=== PATIENT | female | born 1990 | race Caucasian/White ===

== ENCOUNTER 2019-10-08 19:28 | Emergency (ER) | payer MEDICARE, BC ==
[2019-10-08 19:35] VITALS: BP 137/85; PULSE 117; RESP 20; TEMP 98.7
--- NOTE | 2019-10-08 20:09 | ED ---
General Adult HPI - General Chief complaint: Abdominal Pain Stated complaint: Poss Bowel Blockage? Time Seen by Provider: 10/08/19 19:37 Source: patient, family, RN notes reviewed Mode of arrival: wheelchair Limitations: no limitations - History of Present Illness Initial comments: 28-year-old female with a past medical history of cerebral palsy presents to the emergency department for a chief complaint of abdominal bloating. Patient has not had a bowel movement in about 4 days. She has a history of constipation and takes Colace twice daily. She is not having any nausea or vomiting. She denies any abdominal pain. Her caregivers noted that her abdomen is more bloated than normal and that she has not had a bowel movement so brought her in. Patient has no other complaints at this time including shortness of breath, chest pain, abdominal pain, nausea or vomiting, headache, or visual changes. - Related Data Home Medications Medication Instructions Recorded Confirmed Acetaminophen [Tylenol] 325 mg PO DAILY 10/08/19 10/08/19 Baclofen [Lioresal] 100 mg PO BID 10/08/19 10/08/19 Docusate [Colace] 200 mg PO BID PRN 10/08/19 10/08/19 clonazePAM [KlonoPIN] 2 mg PO TID 10/08/19 10/08/19 diphenhydrAMINE [Benadryl] 25 mg PO BID 10/08/19 10/08/19 Allergies Allergy/AdvReac Type Severity Reaction Status Date / Time latex AdvReac Mild Sensitivity Verified 10/08/19 20:44 Review of Systems ROS Statement: Those systems with pertinent positive or pertinent negative responses have been documented in the HPI. ROS Other: All systems not noted in ROS Statement are negative. Past Medical History Additional Past Medical History / Comment(s): cerebal palsy History of Any Multi-Drug Resistant Organisms: None Reported Past Surgical History: No Surgical Hx Reported Past Psychological History: No Psychological Hx Reported Smoking Status: Never smoker Past Alcohol Use History: None Reported Past Drug Use History: None Reported General Exam Limitations: no limitations General appearance: alert, in no apparent distress Head exam: Present: atraumatic, normocephalic, normal inspection Eye exam: Present: normal appearance, PERRL, EOMI. Absent: scleral icterus, conjunctival injection, periorbital swelling ENT exam: Present: normal exam, mucous membranes moist Neck exam: Present: normal inspection, full ROM. Absent: tenderness, meningismus, lymphadenopathy Respiratory exam: Present: normal lung sounds bilaterally. Absent: respiratory distress, wheezes, rales, rhonchi, stridor Cardiovascular Exam: Present: regular rate, normal rhythm, normal heart sounds. Absent: systolic murmur, diastolic murmur, rubs, gallop, clicks GI/Abdominal exam: Present: soft, distended (Mildly distended abdomen), normal bowel sounds. Absent: tenderness (Soft, nontender), guarding, rebound, rigid Neurological exam: Present: alert Course Vital Signs 10/08/19 19:30 Temperature 98.7 F Pulse Rate 117 H Respiratory 20 Rate Blood Pressure 137/85 O2 Sat by Pulse 97 Oximetry Medical Decision Making - Medical Decision Making X-ray KUB did show some rectal fecal impaction. No free air. Patient is not having abdominal pain, no vomiting, and is passing gas, not concern for obstruction at this time. I did recommend digital disimpaction as well as enema. However caregivers do not want to do this and neither does patient. They state they do not want to transfer patient back to the bed and that enemas do not work for her because she cannot hold in the fluid. Patient refuses digital rectal disimpaction. They're requesting medications for home. Therefore I did give them a glycerin suppository. As well as magnesium citrate. I'll also write of prescription for suppositories. They will follow up with her doctor. They will return here patient notes any worsening symptoms including vomiting. Disposition Clinical Impression: Constipation Disposition: HOME SELF-CARE Condition: Good Instructions (If sedation given, give patient instructions): Constipation (ED) Additional Instructions: Please use glycerin suppository. Tried to retain in the rectum for 15 minutes. You may use these twice per day for 3 days. Drink half a bottle of magnesium citrate with a full glass of water. If this does not cause a bowel movement in 6 hours drink the other half. Follow-up with your doctor in one to 2 days for a recheck. Patient has any worsening symptoms such as vomiting or severe abdominal pain return to the emergency room. Is patient prescribed a controlled substance at d/c from ED?: No Referrals: Matt Gallo MD [Primary Care Provider] - 1-2 days Time of Disposition: 20:59
--- NOTE | 2019-10-08 20:27 | XR ---
EXAMINATION TYPE: XR KUB DATE OF EXAM: 10/08/2019 COMPARISON: NONE HISTORY: Abdominal pain and constipation TECHNIQUE: 2 views FINDINGS: There is retained fecal material in the rectum. There is lumbar levoscoliotic deformity. 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 Pelvic ring appears intact. T here is no sign of pneumoperitoneum. There is no evidence of abdominal mass. There are no pathologic calcifications. IMPRESSION: There is some Rectal fecal impaction. No free air. scoliotic deformity.
[2019-10-08] MEDS ORDERED: GLYCERIN ADULT SUPPOSITORY 1 EACH RECTAL STA (20:56)
[2019-10-08] MEDS ORDERED: MAGNESIUM CITRATE 296 ML BOTTLE PO STA (20:56)
== END 2019-10-08 21:34 | disposition home or self-care (01) ==
LOC: EC 19:28
DX: K59.00 Constipation, unspecified (principal); Z91.040 Latex allergy status
CPT/HCPCS: 74018; 99284

== ENCOUNTER 2019-12-25 16:15 | Inpatient (IN) | payer MEDICARE, BC ==
--- NOTE | 2019-12-25 16:53 | ED ---
Wound/Laceration HPI - General Source: patient Mode of arrival: wheelchair Limitations: physical limitation <Simon Dominguez - Last Filed: 12/25/19 19:50> <Wendi Blood - Last Filed: 12/27/19 20:43> - General Chief Complaint: Wound/Laceration Stated Complaint: pressure ulcer on buttocks Time Seen by Provider: 12/25/19 16:30 - History of Present Illness Initial Comments: Patient is a 29-year-old female, wheelchair dependent with history of cerebral palsy presenting to the emergency department with a pressure ulcer. Parents state the patient has had a pressure ulcer in the left side of her buttock for about 6 weeks with continuous increase in severity. There is a home nurse that changes the dressing. The home nurse today to change the dressing and attempted to contact her primary care physician due to the concerning nature of the ulcer. She could not reach so she advised him to come to emergency department for evaluation. Parents report no fevers nausea vomiting. The reports some discharge from the wound but no changes in smell. (Simon Dominguez) - Related Data Home Medications Medication Instructions Recorded Confirmed Baclofen [Lioresal] 100 mg PO BID 10/08/19 12/25/19 clonazePAM [KlonoPIN] 2 mg PO TID 10/08/19 12/25/19 diphenhydrAMINE [Benadryl] 25 mg PO TID 10/08/19 12/25/19 Collagenase [Santyl] 1 applic TOPICAL DAILY 12/25/19 12/25/19 L.acidoph,Paracasei, B.lactis 1 cap PO DAILY 12/25/19 12/25/19 [Probiotic] Naproxen Sodium [Aleve] 220 mg PO BID 12/25/19 12/25/19 Allergies Allergy/AdvReac Type Severity Reaction Status Date / Time latex AdvReac Mild Sensitivity Verified 12/25/19 19:51 Review of Systems ROS Other: All systems not noted in ROS Statement are negative. <Simon Dominguez - Last Filed: 12/25/19 19:50> ROS Other: All systems not noted in ROS Statement are negative. <Wendi Blood - Last Filed: 12/27/19 20:43> ROS Statement: Those systems with pertinent positive or pertinent negative responses have been documented in the HPI. Past Medical History Additional Past Medical History / Comment(s): cerebal palsy History of Any Multi-Drug Resistant Organisms: None Reported Past Surgical History: No Surgical Hx Reported Past Psychological History: No Psychological Hx Reported Smoking Status: Second hand smoke exposure Past Alcohol Use History: None Reported Past Drug Use History: None Reported <Simon Dominguez - Last Filed: 12/25/19 19:50> General Exam Limitations: physical limitation General appearance: alert, in no apparent distress Head exam: Present: atraumatic, normocephalic, normal inspection Eye exam: Present: PERRL, EOMI. Absent: normal appearance (Strabismus) Pupils: Present: normal accommodation ENT exam: Present: normal exam, normal oropharynx, mucous membranes moist Neck exam: Present: normal inspection, full ROM. Absent: tenderness Respiratory exam: Present: normal lung sounds bilaterally. Absent: respiratory distress, wheezes Cardiovascular Exam: Present: normal rhythm, tachycardia, normal heart sounds Back exam: Present: normal inspection, full ROM Neurological exam: Present: alert, oriented X3, normal gait Psychiatric exam: Present: normal affect, normal mood Skin exam: Present: warm, dry, intact, normal color <Simon Dominguez - Last Filed: 12/25/19 19:50> Course Vital Signs 12/25/19 12/25/19 12/25/19 16:22 18:24 21:00 Temperature 98.6 F 97.8 F Pulse Rate 131 H 112 H 120 H Respiratory 20 16 16 Rate Blood Pressure 126/83 111/67 139/83 O2 Sat by Pulse 99 97 Oximetry Medical Decision Making - Lab Data Result diagrams: 12/25/19 17:28 12/25/19 17:28 <Simon Dominguez - Last Filed: 12/25/19 19:50> - Lab Data Result diagrams: 12/25/19 17:28 12/27/19 04:41 <Wendi Blood - Last Filed: 12/27/19 20:43> - Medical Decision Making Patient a 29-year-old female with history of cerebral palsy presenting to the emergency department with a chief complaint upper her ulcer. On initial evaluation, patient has an ulcer that appears to approximately 2 cm of erosion. There is some yellow/white pustular discharge but no foul smell. No surrounding erythema along the borders of the ulcer. The ulcer measures approximately 4 cm in diameter. Patient appears to have dry mucous members on physical exam. I suspect this is the cause of her elevated lactic acid 2.3. IV fluids were started. Patient was also given Rocephin concern for sepsis. CBC is unremarkable. 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 Patient will be started on vancomycin and Zosyn. Patient will be admitted for further medical management. Dr Blood also examined the patient and is in agreement with the treatment plan. The admitted physician is Dr.Prakash LEE consulted (Simon Dominguez) I was available for consultation in the emergency department. The history and physical exam were done by the midlevel provider. I was consulted for this patients care. I reviewed the case with the midlevel provider and based on their presentation of the patient, I agree with the assessment, medical decision making and plan of care as documented. Chart was dictated using [employer] dictation software. Attempts were made to correct any dictation errors however some typographical errors may persist. Patient was seen during a national state of emergency due to the Covid-19 pandemic. (Wendi Blood) - Lab Data Lab Results 12/25/19 12/25/19 12/25/19 Range/Units 17:28 17:28 17:28 WBC 7.7 (3.8-10.6) k/uL RBC 4.82 (3.80-5.40) m/uL Hgb 13.8 (11.4-16.0) gm/dL Hct 43.4 (34.0-46.0) % MCV 90.1 (80.0-100.0) fL MCH 28.7 (25.0-35.0) pg MCHC 31.8 (31.0-37.0) g/dL RDW 12.9 (11.5-15.5) % Plt Count 377 (150-450) k/uL Neutrophils % 80 % Lymphocytes % 13 % Monocytes % 5 % Eosinophils % 2 % Basophils % 1 % Neutrophils # 6.1 (1.3-7.7) k/uL Lymphocytes # 1.0 (1.0-4.8) k/uL Monocytes # 0.4 (0-1.0) k/uL Eosinophils # 0.1 (0-0.7) k/uL Basophils # 0.1 (0-0.2) k/uL Sodium 144 (137-145) mmol/L Potassium 3.9 (3.5-5.1) mmol/L Chloride 111 H (98-107) mmol/L Carbon Dioxide 25 (22-30) mmol/L Anion Gap 8 mmol/L BUN 23 H (7-17) mg/dL Creatinine 0.42 L (0.52-1.04) mg/dL Est GFR (CKD-EPI)AfAm >90 (>60 ml/min/1.73 sqM) Est GFR (CKD-EPI)NonAf >90 (>60 ml/min/1.73 sqM) Glucose 114 H (74-99) mg/dL Lactic Ac Sepsis Rflx Plasma Lactic Acid Nitin 2.3 H* (0.7-2.0) mmol/L Calcium 9.5 (8.4-10.2) mg/dL Total Bilirubin 0.4 (0.2-1.3) mg/dL AST 19 (14-36) U/L ALT 11 (4-34) U/L Alkaline Phosphatase 70 (38-126) U/L Total Protein 7.6 (6.3-8.2) g/dL Albumin 4.4 (3.5-5.0) g/dL 12/25/19 12/25/19 12/27/19 Range/Units 17:55 20:10 04:41 WBC (3.8-10.6) k/uL RBC (3.80-5.40) m/uL Hgb (11.4-16.0) gm/dL Hct (34.0-46.0) % MCV (80.0-100.0) fL MCH (25.0-35.0) pg MCHC (31.0-37.0) g/dL RDW (11.5-15.5) % Plt Count (150-450) k/uL Neutrophils % % Lymphocytes % % Monocytes % % Eosinophils % % Basophils % % Neutrophils # (1.3-7.7) k/uL Lymphocytes # (1.0-4.8) k/uL Monocytes # (0-1.0) k/uL Eosinophils # (0-0.7) k/uL Basophils # (0-0.2) k/uL Sodium (137-145) mmol/L Potassium (3.5-5.1) mmol/L Chloride (98-107) mmol/L Carbon Dioxide (22-30) mmol/L Anion Gap mmol/L BUN (7-17) mg/dL Creatinine 0.6 (0.52-1.04) mg/dL Est GFR (CKD-EPI)AfAm 140.8 (>60 ml/min/1.73 sqM) Est GFR (CKD-EPI)NonAf 121.5 (>60 ml/min/1.73 sqM) Glucose (74-99) mg/dL Lactic Ac Sepsis Rflx Y Plasma Lactic Acid Nitin 1.4 (0.7-2.0) mmol/L Calcium (8.4-10.2) mg/dL Total Bilirubin (0.2-1.3) mg/dL AST (14-36) U/L ALT (4-34) U/L Alkaline Phosphatase (38-126) U/L Total Protein (6.3-8.2) g/dL Albumin (3.5-5.0) g/dL Disposition Is patient prescribed a controlled substance at d/c from ED?: No Time of Disposition: 19:56 <Simon Dominguez - Last Filed: 12/25/19 19:50> <Wendi Blood - Last Filed: 12/27/19 20:43> Clinical Impression: Pressure ulcer of left hip, Soft tissue infection Disposition: ADMITTED IP TO THIS HOSP Condition: Good
[2019-12-25] MEDS ORDERED: cefTRIAXone IN SWFI 1,000 MG/10 ML SYRINGE IVP STA (17:23)
[2019-12-25] MEDS ORDERED: SODIUM CHLORIDE 0.9% 1,000 ML IV STA (17:23)
[2019-12-25 17:40] LABS: Basophils # (A) 0.1 k/uL (0-0.2); Basophils % (A) 1 %; Eosinophils # (A) 0.1 k/uL (0-0.7); Eosinophils % (A) 2 %; HCT 43.4 % (34.0-46.0); HGB 13.8 gm/dL (11.4-16.0); Lymphocytes % (A) 13 %; MCH 28.7 pg (25.0-35.0); MCHC 31.8 g/dL (31.0-37.0); MCV 90.1 fL (80.0-100.0); Mean Platelet Volume 7.8; Monocytes # (A) 0.4 k/uL (0-1.0); Monocytes % (A) 5 %; Neutrophils # (A) 6.1 k/uL (1.3-7.7); Neutrophils % (A) 80 %; Platelet Count 377 k/uL (150-450); RBC 4.82 m/uL (3.80-5.40); RDW 12.9 % (11.5-15.5); WBC 7.7 k/uL (3.8-10.6)
[2019-12-25 17:52] LABS: ALT 11 U/L (4-34); AST 19 U/L (14-36); African American GFR (CKD) >90 (>60 ml/min/1.73 sqM); Albumin 4.4 g/dL (3.5-5.0); Alkaline Phosphatase 70 U/L (38-126); Anion Gap 8 mmol/L; Blood Urea Nitrogen 23 mg/dL (7-17); Calcium 9.5 mg/dL (8.4-10.2); Carbon Dioxide 25 mmol/L (22-30); Chloride 111 mmol/L (98-107); Glucose 114 mg/dL (74-99); Non-African American GFR(CKD) >90 (>60 ml/min/1.73 sqM); Potassium 3.9 mmol/L (3.5-5.1); Sodium 144 mmol/L (137-145); Total Bilirubin 0.4 mg/dL (0.2-1.3); Total Protein 7.6 g/dL (6.3-8.2)
--- NOTE | 2019-12-25 18:33 | XR ---
EXAMINATION TYPE: XR Hip Complete LT DATE OF EXAM: 12/25/2019 COMPARISON: NONE HISTORY: Left hip pain TECHNIQUE: 2 views FINDINGS: There is deformity of the left femoral head and the acetabulum consistent with old hip dysp lasia and hip dislocation with pseudoarthrosis of the femoral head with the ileum. I see no fracture. IMPRESSION: Deformity of the left hip joint consistent with chronic dislocation and pseudoarthrosis. No evidence of osteomyelitis.
[2019-12-25] MEDS ORDERED: NALOXONE 0.4 MG/ML 1 ML VIAL IV PRN (19:43)
[2019-12-25] MEDS ORDERED: ONDANSETRON 4 MG/2 ML VIAL IVP PRN (19:43)
[2019-12-25] MEDS ORDERED: LORazepam 2 MG/ML INJ IV PRN (19:43)
[2019-12-25] MEDS ORDERED: VANCOMYCIN IV PER PHARMACY 1 EACH MISC MISCELLANE PRN (19:50)
[2019-12-25] MEDS ORDERED: PIPERACILLIN-TAZOBACTAM 3.375 GM in SODIUM CHLORIDE 0.9% 100 ML IVPB STA (19:52)
[2019-12-25] MEDS ORDERED: VANCOMYCIN 1,250 MG in SODIUM CHLORIDE 0.9% 250 ML IVPB ONE (20:30)
[2019-12-25] MEDS: SODIUM CHLORIDE 0.9% 1,000 ML IV SCH (21:53)
[2019-12-26] MEDS: VANCOMYCIN 1,000 MG in SODIUM CHLORIDE 0.9% 250 ML IVPB SCH ×3 (04:29→21:34)
[2019-12-26] MEDS: LACTOBACILLUS ACIDOPH & BULGAR 1 EACH PACKET PO SCH (11:27)
[2019-12-26] MEDS: clonazePAM 1 MG TAB PO SCH ×3 (11:27→21:36)
[2019-12-26] MEDS: NAPROXEN 250 MG TAB PO SCH ×2 (11:27→21:35)
[2019-12-26] MEDS: diphenhydrAMINE 25 MG CAP PO SCH ×3 (11:27→21:36)
[2019-12-26] MEDS: BACLOFEN 10 MG TAB PO SCH ×2 (12:19→21:43)
[2019-12-26] MEDS: SODIUM CHLORIDE 0.9% 1,000 ML IV SCH ×2 (12:23→21:48)
[2019-12-26 14:33] VITALS: BMI 23.6
--- NOTE | 2019-12-26 15:59 | P.HPIM ---
History of Present Illness H&P Date: 12/26/19 Chief Complaint: Decubitus buttock wound History of presenting complaint: This is a 29-year-old patient who follows with Dr. shea from [place]. Patient is pretty much wheelchair dependent history of cerebral palsy. Patient's parents were present in the ER. Patient's had a pressure ulcer the left side of the buttock/hip area for last 6 weeks and progressively getting worse. Has been a home nurse does believe the dressing changes. Does not report nausea of fever. Patient is a bit dysarthric but able to answer simple questions. She does state that the wheelchair padding is a bit uncomfortable. Patient has spasticity in the lower extremities. Review of systems: GEN.: Tired EYES: None HEENT: None NECK: None RESPIRATORY: None CARDIOVASCULAR: None GASTROINTESTINAL: None GENITOURINARY: Vers diapers MUSCULOSKELETAL: Joint pains] LYMPHATICS: None HEMATOLOGICAL: None PSYCHIATRY: None NEUROLOGICAL: Weakness of the muscles and extremities Past medical history to include: Cerebral palsy from , muscle spasms, medical debility Social history: No history of smoking or alcohol. Uses a wheelchair. Physical examination: VITAL SIGNS: 98.6, 131, 20, 126/83, 99% on room air upon presentation GENERAL: BMI 23.6, laying in bed, awake. EYES: Pupils equal. Conjunctiva charito, strabismusl. HEENT: External appearance of nose and ears normal, oral cavity grossly normal. NECK: JVD unable to assess; masses not palpable. HEART: First and second heart sounds are normal; no edema. LUNGS: Respiratory rate normal; clear to auscultation. ABDOMEN: Soft, nontender, liver spleen not palpable, no masses palpable. MUSCULAR skeletal-there is a deep Route decubital ulcer posterior part of the left hip adjoining gluteal area about 2 inches in diameter. PSYCH: Patient able tonsil simple questionsl. NEUROLOGICAL: [Strabismus, dysarthric, contracted upper and lower extremity. Muscle wasting. LYMPHATICS: No lymph nodes palpable in the axilla and neck INVESTIGATIONS, reviewed in the clinical context: White count 7.7 hemoglobin 13.8 platelets 377, potassium 3.9, bun 23, creatinine 0.42 Lactic acid 2.3 Assessment: -Patient has a progressive left hip posterior gluteal decubitus ulcer that has failed outpatient treatment and progressively getting worse. -Lactic acidosis from above -Chronic cerebral palsy -Limb contractures from above -Chronic muscle spasms -Chronic constipation Plan: Patient is IV vancomycin. Home medications to continue. Senokot 4 constipation. Will also add Metamucil. Dr. Luther from [place] consulted. Past Medical History Additional Past Medical History / Comment(s): cerebral palsy, muscle spasms, receives botox injections in legs to reduce spasticity History of Any Multi-Drug Resistant Organisms: None Reported Past Surgical History: No Surgical Hx Reported Additional Past Surgical History / Comment(s): botox injections through [place] Past Psychological History: No Psychological Hx Reported Smoking Status: Second hand smoke exposure Past Alcohol Use History: None Reported Past Drug Use History: None Reported - Past Family History Mother Family Medical History: CVA/TIA, Hyperlipidemia, Hypertension Additional Family Medical History / Comment(s): Stroke at daughter's ; epilepsy, is heavy smoker, smokers cough Medications and Allergies Home Medications Medication Instructions Recorded Confirmed Type Baclofen [Lioresal] 100 mg PO BID 10/08/19 12/25/19 History clonazePAM [KlonoPIN] 2 mg PO TID 10/08/19 12/25/19 History diphenhydrAMINE [Benadryl] 25 mg PO TID 10/08/19 12/25/19 History Collagenase [Santyl] 1 applic TOPICAL DAILY 12/25/19 12/25/19 History L.acidoph,Paracasei, B.lactis 1 cap PO DAILY 12/25/19 12/25/19 History [Probiotic] Naproxen Sodium [Aleve] 220 mg PO BID 12/25/19 12/25/19 History Allergies Allergy/AdvReac Type Severity Reaction Status Date / Time latex AdvReac Mild Sensitivity Verified 12/25/19 19:51 Physical Exam Vitals: Vital Signs Temp Pulse Pulse Resp BP BP Pulse Ox 12/26/19 04:40 98.0 F 76 16 122/80 99 12/26/19 00:00 106 H 18 12/25/19 22:00 97.8 F 106 H 18 134/79 98 12/25/19 21:00 97.8 F 120 H 16 139/83 12/25/19 18:24 112 H 16 111/67 97 12/25/19 16:22 98.6 F 131 H 20 126/83 99 Intake and Output 12/25/19 12/26/19 12/26/19 22:59 06:59 14:59 Intake Total 480 675 Balance 480 675 Intake: Intake, IV Titration 480 675 Amount Piperacillin-Tazobactam 3 100 .375 gm In Sodium Chloride 0.9% 100 ml @ 200 mls/hr IVPB ONCE STA Rx#:[id number] Sodium Chloride 0.9% 1, 130 000 ml @ 130 mls/hr IV . [id number] [facility] Rx#:[id number] Sodium Chloride 0.9% 1, 675 000 ml @ 75 mls/hr IV . [id number] [facility] Rx#:[id number] Vancomycin 1,000 mg In 250 Sodium Chloride 0.9% 250 ml @ 125 mls/hr IVPB Q8H [facility] Rx#:[id number] Other: Voiding Method Incontinent Incontinent # Voids 0 1 # Bowel Movements 0 Weight 60.328 kg Results CBC & Chem 7: 12/25/19 17:28 12/25/19 17:28 Labs: Abnormal Lab Results - Last 24 Hours (Table) 12/25/19 12/25/19 Range/Units 17:28 17:28 Chloride 111 H (98-107) mmol/L BUN 23 H (7-17) mg/dL Creatinine 0.42 L (0.52-1.04) mg/dL Glucose 114 H (74-99) mg/dL Plasma Lactic Acid Nitin 2.3 H* (0.7-2.0) mmol/L Microbiology - Last 24 Hours (Table) 12/25/19 17:28 Gram Stain - Preliminary Hip - Left Wound Culture - Preliminary Thrombosis Risk Factor Assmnt - Choose All That Apply Any of the Below Risk Factors Present?: No Other Risk Factors: Yes Each Risk Factor Represents 2 Points: Patient confined to bed Other congenital or acquired thrombophilia - If yes, enter type in comment: No Thrombosis Risk Factor Assessment Total Risk Factor Score: 2 Thrombosis Risk Factor Assessment Level: Low Risk
--- NOTE | 2019-12-26 18:50 | P.GSCN ---
History of Present Illness Consult date: 12/26/19 Reason for Consult: Left buttock decubitus ulcer History of present illness: 29-year-old female comes to the hospital with complaints of a ulcer left buttock. Patient with history of cerebral palsy and is wheelchair dependent. There has been some breakdown in the patient's condition recently. Present and increasing in size for the last 6 weeks. Has been having home care with local dressing changes by the visiting nurses. Patient states there is some soreness when that area is examined. No severe pain however. No fevers. X-ray per formed does not show any evidence of osteomyelitis. We were consulted after infectious disease evaluated the wound and recommended surgical debridement. Review of Systems The patient denies any acute changes in vision or hearing, no dysphagia or odynophagia, no chest pain or shortness of breath, no dysuria or hematuria, no headache, no runny nose, no rectal bleeding or melena, no unexplained weight loss Past Medical History Additional Past Medical History / Comment(s): cerebral palsy, muscle spasms, receives botox injections in legs to reduce spasticity History of Any Multi-Drug Resistant Organisms: None Reported Past Surgical History: No Surgical Hx Reported Additional Past Surgical History / Comment(s): botox injections through [place] Past Psychological History: No Psychological Hx Reported Smoking Status: Second hand smoke exposure Past Alcohol Use History: None Reported Past Drug Use History: None Reported - Past Family History Mother Family Medical History: CVA/TIA, Hyperlipidemia, Hypertension Additional Family Medical History / Comment(s): Stroke at daughter's ; epilepsy, is heavy smoker, smokers cough Medications and Allergies Home Medications Medication Instructions Recorded Confirmed Type Baclofen [Lioresal] 100 mg PO BID 10/08/19 12/25/19 History clonazePAM [KlonoPIN] 2 mg PO TID 10/08/19 12/25/19 History diphenhydrAMINE [Benadryl] 25 mg PO TID 10/08/19 12/25/19 History Collagenase [Santyl] 1 applic TOPICAL DAILY 12/25/19 12/25/19 History L.acidoph,Paracasei, B.lactis 1 cap PO DAILY 12/25/19 12/25/19 History [Probiotic] Naproxen Sodium [Aleve] 220 mg PO BID 12/25/19 12/25/19 History Allergies Allergy/AdvReac Type Severity Reaction Status Date / Time latex AdvReac Mild Sensitivity Verified 12/25/19 19:51 Surgical - Exam Vital Signs Temp Pulse Resp BP Pulse Ox 98.6 F 131 H 20 126/83 99 12/25/19 16:22 12/25/19 16:22 12/25/19 16:22 12/25/19 16:22 12/25/19 16:22 Physical exam: General: Well-developed, somewhat malnourished appearing HEENT: Normocephalic, sclerae nonicteric Abdomen: Nontender, nondistended Extremities: Upper and lower extremity contractures. Left buttock wound examined. Wound 3 x 3 cm. Depth is unable to be fully ascertained. Necrotic subcutaneous fat and suspected muscle is visualized. Mild tenderness, no significant tunneling, minimal serous drainage. No fluctuance Neuro: Alert and oriented Results - Labs 12/25/19 17:28 12/25/19 17:28 Microbiology - Last 24 Hours (Table) 12/25/19 17:28 Gram Stain - Preliminary Hip - Left Wound Culture - Preliminary Assessment and Plan (1) Pressure ulcer of left hip Narrative/Plan: 29-year-old female with decubitus ulcer left buttock. Clinical scenario discussed with the patient. We'll proceed with surgical debridement at the bedside. Risks of bleeding, infection, nonhealing, wound enlargement, possible need for further procedures. She understands and wishes to proceed. Current Visit: Yes Status: Acute Code(s): L89.229 - PRESSURE ULCER OF LEFT HIP, UNSPECIFIED STAGE SNOMED Code(s): 373955992
--- NOTE | 2019-12-26 20:31 | P.OP ---
Date of Procedure: 12/26/19 Procedure(s) Performed: PREOPERATIVE DIAGNOSIS: Left ischial decubitus ulcer POSTOPERATIVE DIAGNOSIS: Same PROCEDURE: Debridement left ischial decubitus ulcer SURGEON: Kevin EBL: Less than 1 mL ANESTHESIA: None COMPLICATIONS: None OPERATIVE PROCEDURE: Patient was kept in her hospital bed for the procedure. She was placed in the right decubitus position. The left buttock ulcer was debrided sharply using both scalpel and scissors. The debridement took place in an excisional manner removing both necrotic subcutaneous fat and superficial muscle. No visible bone was seen. This did not appear to track circumferentially. No abscess cavities were encountered. The wound was then packed with 4 x 4 and met a honey at that time. Sterile dressing applied. DISPOSITION: Stable
--- NOTE | 2019-12-26 23:27 | P.CONS ---
History of Present Illness - Reason for Consult Consult date: 12/26/19 Left gluteal pressure ulcer Requesting physician: Kendall Vargas - Chief Complaint Nonhealing ulcer to the left gluteal area x 6 weeks - History of Present Illness Patient is 29 year old female with a past medical history significant for cerebral palsy this patient was spent most of her day in her wheelchair and at night in her bed patient has been brought into the ER at [facility] for evaluation of the pressure ulcer to the left buttock which apparently started about 6 weeks ago family did mention that her wheelchair during seems to be wearing out and the patient seemed to be having problem with a pressure-related from the wheelchair, and has been using different modality for her to help it heal or no improvement home care nurse was arranged for the patient works on the patient yesterday and did not like the look of the wound and advised the patient to go to the ER patient has been complaining of pain to the wound area however is unable to quantify it any further is no purulent drainage from it and the patient denies having any fever or any chills on arrival to the ER the patient was afebrile, and did have a normal white count a nd the patient did have x-rays of the right hip which did not show any bony changes patient did received a dose of Rocephin and Zosyn in the she was continued on vancomycin and admitted to the hospital and finished it was consulted for further management of local wound care and antibiotic therapy Review of Systems Positive point has been mentioned in the HPI rest of the systems are negative Past Medical History Additional Past Medical History / Comment(s): cerebral palsy, muscle spasms, receives botox injections in legs to reduce spasticity History of Any Multi-Drug Resistant Organisms: None Reported Past Surgical History: No Surgical Hx Reported Additional Past Surgical History / Comment(s): botox injections through [facility] Past Psychological History: No Psychological Hx Reported Smoking Status: Second hand smoke exposure Past Alcohol Use History: None Reported Past Drug Use History: None Reported - Past Family History Mother Family Medical History: CVA/TIA, Hyperlipidemia, Hypertension Additional Family Medical History / Comment(s): Stroke at daughter's ; epilepsy, is heavy smoker, smokers cough Medications and Allergies Home Medications Medication Instructions Recorded Confirmed Type Baclofen [Lioresal] 100 mg PO BID 10/08/19 12/25/19 History clonazePAM [KlonoPIN] 2 mg PO TID 10/08/19 12/25/19 History diphenhydrAMINE [Benadryl] 25 mg PO TID 10/08/19 12/25/19 History Collagenase [Santyl] 1 applic TOPICAL DAILY 12/25/19 12/25/19 History L.acidoph,Paracasei, B.lactis 1 cap PO DAILY 12/25/19 12/25/19 History [Probiotic] Naproxen Sodium [Aleve] 220 mg PO BID 12/25/19 12/25/19 History Allergies Allergy/AdvReac Type Severity Reaction Status Date / Time latex AdvReac Mild Sensitivity Verified 12/25/19 19:51 Physical Exam Vitals: Vital Signs Temp Pulse Pulse Resp BP BP Pulse Ox 12/26/19 13:00 98.1 F 87 16 141/99 98 12/26/19 04:40 98.0 F 76 16 122/80 99 12/26/19 00:00 106 H 18 12/25/19 22:00 97.8 F 106 H 18 134/79 98 12/25/19 21:00 97.8 F 120 H 16 139/83 12/25/19 18:24 112 H 16 111/67 97 Intake and Output 12/26/19 12/26/19 12/26/19 06:59 14:59 22:59 Intake Total 675 Balance 675 Intake: Intake, IV Titration 675 Amount Sodium Chloride 0.9% 1, 675 000 ml @ 75 mls/hr IV . [id number] [facility] Rx#:[id number] Other: Voiding Method Incontinent Incontinent # Voids 0 4 # Bowel Movements 0 Weight 60.328 kg GENERAL DESCRIPTION: Middle-aged female lying in bed, no distress. No tachypnea or accessory muscle of respiration use. HEENT: Shows Pallor , no scleral icterus. Oral mucous membrane is dry. No pharyngeal erythema or thrush NECK: Trachea central, no thyromegaly. LUNGS: Unlabored breathing. Clear to auscultation anteriorly. No wheeze or crackle. HEART: S1, S2, regular rate and rhythm. No loud murmur ABDOMEN: Soft, no tenderness , guarding or rigidity, no organomegaly EXTREMITIES: No edema of feet. SKIN: No rash, no masses palpable. Left gluteal area did have a stage III pressure ulcer with slough tissue the base no surrounding redness or any foul- smelling drainage NEUROLOGICAL: The patient is awake, alert, oriented x2, mood and affect normal. Results CBC & Chem 7: 12/25/19 17:28 12/25/19 17:28 Labs: Abnormal Lab Results - Last 24 Hours (Table) 12/25/19 12/25/19 Range/Units 17:28 17:28 Chloride 111 H (98-107) mmol/L BUN 23 H (7-17) mg/dL Creatinine 0.42 L (0.52-1.04) mg/dL Glucose 114 H (74-99) mg/dL Plasma Lactic Acid Nitin 2.3 H* (0.7-2.0) mmol/L Microbiology - Last 24 Hours (Table) 12/25/19 17:28 Gram Stain - Preliminary Hip - Left Wound Culture - Preliminary Assessment and Plan Assessment: 1- patient with stage III left gluteal pressure ulcer with evidence of significant cellulitis wound was considered to be extended down to the bone and there is no evidence of any bony changes on the x-ray however her local wound care now showing gram-negative bacilli (1) Stage III pressure ulcer of left hip Current Visit: Yes Status: Acute Code(s): L89.223 - PRESSURE ULCER OF LEFT HIP, STAGE 3 SNOMED Code(s): 970955701 (2) Soft tissue infection Current Visit: Yes Status: Acute Code(s): L08.9 - LOCAL INFECTION OF THE SKIN AND SUBCUTANEOUS TISSUE, UNSP SNOMED Code(s): 98701869 Plan: 1- Gen. surgery consult for surgical debridement of this wound 2-local wound care with the vikram honey followed by moist dressing daily off pressure 3-discontinue the vancomycin 4-start patient on Unasyn 3 g every 6 hours We will follow on clinical condition and cultures to further adjust medication if needed Thank you for this consultation will follow this patient with you Time with Patient: Greater than 30
[2019-12-26] MEDS: AMPICILLIN-SULBACTAM 3 GM in SODIUM CHLORIDE 0.9% 100 ML IVPB SCH (23:59)
[2019-12-27] MEDS: AMPICILLIN-SULBACTAM 3 GM in SODIUM CHLORIDE 0.9% 100 ML IVPB SCH ×4 (05:06→23:38)
[2019-12-27] MEDS: LACTOBACILLUS ACIDOPH & BULGAR 1 EACH PACKET PO SCH (08:26)
[2019-12-27] MEDS: NAPROXEN 250 MG TAB PO SCH ×2 (08:26→21:27)
[2019-12-27] MEDS: BACLOFEN 10 MG TAB PO SCH ×2 (08:26→21:26)
[2019-12-27] MEDS: diphenhydrAMINE 25 MG CAP PO SCH ×3 (08:26→21:27)
[2019-12-27] MEDS: clonazePAM 1 MG TAB PO SCH ×3 (08:26→21:27)
[2019-12-27 09:07] LABS: African American GFR (CKD) 140.8 (60.0-200.0); Non-African American GFR(CKD) 121.5 (60.0-200.0)
--- NOTE | 2019-12-27 10:54 | P.PN ---
<Laura Rojo - Last Filed: 12/27/19 10:46> Subjective Progress Note Date: 12/27/19 CHIEF COMPLAINT: Left ischial decubitus ulcer HISTORY OF PRESENT ILLNESS: Patient is status post debridement left ischial decubitus ulcer. She appears comfortable lying in bed with the left buttocks elevated on pillow. Patient denies any pain. Denies any nausea or vomiting. She is tolerating regular diet. She is afebrile. PHYSICAL EXAM: VITAL SIGNS: Reviewed. GENERAL: Well-developed in no acute distress. HEENT: No sclera icterus. Extraocular movements grossly intact. Moist buccal mucosa. Head is atraumatic, normocephalic. ABDOMEN: Soft. Nondistended. Nontender. NEUROLOGIC: Alert and oriented. Cranial nerves II through XII grossly intact. SKIN: Left buttocks dressing there is blood shadowing noted at the distal aspect of the dressing ASSESSMENT: 1. Left ischial decubitus ulcer status post debridement. Postop day #1 2. History of cerebral palsy PLAN: -Continue antibiotics per ID -Continue IV fluids -Continue regular diet Physician Bandoleer Packer note has been reviewed by physician. Signing provider agrees with the documented findings, assessment, and plan of care. Objective - Vital Signs Vital signs: Vital Signs Temp 97.6 F 12/27/19 04:45 Pulse 78 12/27/19 04:45 Resp 18 12/27/19 04:45 BP 123/85 12/27/19 04:45 Pulse Ox 98 12/27/19 04:45 Intake & Output 12/26/19 12/27/19 12/27/19 18:59 06:59 18:59 Intake Total 240 Balance 240 Weight 60.328 kg Intake: Oral 240 Other: Voiding Method Incontinent Incontinent Incontinent # Voids 4 3 - Labs CBC & Chem 7: 12/25/19 17:28 12/27/19 04:41 Labs: Microbiology - Last 24 Hours (Table) 12/25/19 17:28 Blood Culture - Preliminary Blood No Growth after 24 hours 12/25/19 17:28 Gram Stain - Preliminary Hip - Left Wound Culture - Preliminary Gram Neg Bacilli <Hamzah Brown - Last Filed: 12/27/19 14:42> Subjective As above. Patient without complaints of pain. Minimal drainage. She is afebrile. Wound is clean. Minimal superficial slough noted. Continue local wound care. We'll sign off. Please call if needed. Objective - Vital Signs Vital signs: Vital Signs Temp 98.2 F 12/27/19 11:36 Pulse 97 12/27/19 11:36 Resp 15 12/27/19 11:36 BP 115/76 12/27/19 11:36 Pulse Ox 97 12/27/19 11:36 Intake & Output 12/26/19 12/27/19 12/27/19 18:59 06:59 18:59 Intake Total 865 Balance 865 Weight 60.328 kg Intake: Intake, IV Titration 625 Amount Ampicillin-Sulbactam 3 gm 100 In Sodium Chloride 0.9% 100 ml @ 200 mls/hr IVPB Q6HR [facility] Rx#:[id number] Sodium Chloride 0.9% 1, 525 000 ml @ 75 mls/hr IV . [id number] [facility] Rx#:[id number] Oral 240 Other: Voiding Method Incontinent Incontinent Incontinent # Voids 4 3 - Labs CBC & Chem 7: 12/25/19 17:28 12/27/19 04:41 Labs: Microbiology - Last 24 Hours (Table) 12/25/19 17:28 Blood Culture - Preliminary Blood No Growth after 24 hours 12/25/19 17:28 Gram Stain - Preliminary Hip - Left Wound Culture - Preliminary Gram Neg Bacilli Assessment and Plan (1) Pressure ulcer of left hip Current Visit: Yes Status: Acute Code(s): L89.229 - PRESSURE ULCER OF LEFT HIP, UNSPECIFIED STAGE SNOMED Code(s): 448185075
[2019-12-27] MEDS ORDERED: VANCOMYCIN TROUGH DUE 1 EACH MISC MISCELLANE ONE (12:00)
[2019-12-27] MEDS: HEPARIN SODIUM,PORCINE 5,000 UNIT/ML 1 ML VIAL SQ SCH ×2 (12:42→21:27)
--- NOTE | 2019-12-27 15:48 | PN ---
PROGRESS NOTE DATE OF SERVICE: 12/27/2019 REASON FOR FOLLOWUP: Left gluteal stage III pressure ulcer. INTERVAL HISTORY: The patient is afebrile. The patient did have surgical debridement of this wound by Surgery yesterday. Patient tolerated the procedure. Pain to the gluteal area is currently controlled. Denies having any chest pain or cough. No nausea or vomiting. No abdominal pain or diarrhea. PHYSICAL EXAMINATION: Blood pressure 115/76, pulse of 97, temperature 98.2. She is 97% on room air. General description is a middle-aged female lying in bed in no distress. RESPIRATORY SYSTEM: Unlabored breathing. Clear to auscultation anteriorly. HEART: S1, S2. Regular rate and rhythm. ABDOMEN: Soft. No tenderness. Left gluteal wound with minimal slough tissue. Overall improvement and no significant surrounding swelling, redness or any drainage. Wound is not tracking out of the . LABS: Creatinine 0.6. Wound culture with Gram-negative bacilli. Blood culture negative. DIAGNOSTIC IMPRESSION AND PLAN: Patient with left hip/gluteal area stage III pressure ulcer, status post surgical debridement. In view of the location of the wound as well as the depth of the wound, the patient will benefit from wound V.A.C. therapy which will be applied with Medihoney at the base of the wound. Continue with Unasyn. Discharge antibiotic to depend upon the culture report, more likely oral. Continue with supportive care. MMODL / IJN: [id number] /
[2019-12-27] MEDS: SODIUM CHLORIDE 0.9% 1,000 ML IV SCH (21:21)
--- NOTE | 2019-12-27 22:12 | P.PN ---
Progress Note - Text Progress Note Date: 12/27/19 Chief Complaint: Decubitus buttock wound History of presenting complaint: This is a 29-year-old patient who follows with Dr. shea from [place]. Patient is pretty much wheelchair dependent history of cerebral palsy. Patient's parents were present in the ER. Patient's had a pressure ulcer the left side of the buttock/hip area for last 6 weeks and progressively getting worse. Has been a home nurse does believe the dressing changes. Does not report nausea of fever. Patient is a bit dysarthric but able to answer simple questions. She does state that the wheelchair padding is a bit uncomfortable. Patient has spasticity in the lower extremities. Admitted with left buttock decub ulcer wound. On IV Unasyn. IV fluids. Patient buttock wound debridement by Dr. Cho. Today-laying in bed. Appears more comfortable. Getting IV Unasyn and fluids. Review of systems: Was done for constitutional, cardiovascular, GI, pulmonary. relevant finding as above Active Medications Baclofen (Baclofen 10 Mg Tab) 100 mg PO BID [facility] Last Admin: 12/27/19 21:26 Dose: 100 mg Documented by: Clonazepam (Clonazepam 1 Mg Tab) 2 mg PO TID [facility] Last Admin: 12/27/19 21:27 Dose: 2 mg Documented by: Diphenhydramine HCl (Diphenhydramine 25 Mg Cap) 25 mg PO TID [facility] Last Admin: 12/27/19 21:27 Dose: 25 mg Documented by: Heparin Sodium (Porcine) (Heparin Sodium,Porcine 5,000 Unit/Ml 1 Ml Vial) 5,000 unit SQ Q12HR [facility] Last Admin: 12/27/19 21:27 Dose: 5,000 unit Documented by: Sodium Chloride (Saline 0.9%) 1,000 mls @ 75 mls/hr IV .[id number] [facility] Last Admin: 12/27/19 21:21 Dose: 75 mls/hr Documented by: Ampicillin Sodium/Sulbactam (Sodium 3 gm/ Sodium Chloride) 100 mls @ 200 mls/hr IVPB Q6HR [facility] Last Admin: 12/27/19 18:28 Dose: 200 mls/hr Documented by: Lactobacillus Acidoph/Bulgaricus (Lactobacillus Acidoph & Bulgar 1 Each Packet) 1 each PO DAILY [facility] Last Admin: 12/27/19 08:26 Dose: 1 each Documented by: Lorazepam (Lorazepam 2 Mg/Ml Inj) 0.5 mg IV Q6HR PRN PRN Reason: Anxiety Naloxone HCl (Naloxone 0.4 Mg/Ml 1 Ml Vial) 0.2 mg IV Q2M PRN PRN Reason: Opioid Reversal Naproxen (Naproxen 250 Mg Tab) 250 mg PO BID [facility] Last Admin: 12/27/19 21:27 Dose: 250 mg Documented by: Ondansetron HCl (Ondansetron 4 Mg/2 Ml Vial) 4 mg IVP Q8HR PRN PRN Reason: Nausea And Vomiting Physical examination: VITAL SIGNS: 98.2, 97, 15, 115/76, 97% on room air GENERAL: Laying in bed, appears comfortable. EYES: Pupils equal. Conjunctiva charito, strabismusl. NECK: JVD unable to assess; masses not palpable. HEART: First and second heart sounds are normal; no edema. LUNGS: Respiratory rate normal; clear to auscultation. ABDOMEN: Soft, nontender, liver spleen not palpable, no masses palpable. MUSCULAR skeletal-there is a deep Route decubital ulcer posterior part of the left hip adjoining gluteal area about 2 inches in diameter. PSYCH: Able to answer simple questions NEUROLOGICAL: [Strabismus, dysarthric, contracted upper and lower extremity. Muscle wasting. INVESTIGATIONS, reviewed in the clinical context: White count 7.7 hemoglobin 13.8 platelets 377, potassium 3.9, bun 23, creatinine 0.42 Lactic acid 2.3 Assessment: -Patient has a progressive left hip posterior gluteal decubitus ulcer that has failed outpatient treatment and progressively getting worse.-Status post debridement -Lactic acidosis from above -Chronic cerebral palsy -Limb contractures from above -Chronic muscle spasms -Chronic constipation Plan: Patient on IV Unasyn. Discussed with Dr. Cho. Probably no further need for debridement. Dressing changes to continue. Pending culture
[2019-12-28] MEDS: SODIUM CHLORIDE 0.9% 1,000 ML IV SCH ×2 (02:12→14:44)
[2019-12-28] MEDS: AMPICILLIN-SULBACTAM 3 GM in SODIUM CHLORIDE 0.9% 100 ML IVPB SCH (05:13)
[2019-12-28 06:22] LABS: Basophils % (A) 0 %; Eosinophils # (A) 0.1 k/uL (0-0.7); Eosinophils % (A) 2 %; HCT 39.6 % (34.0-46.0); HGB 12.6 gm/dL (11.4-16.0); Lymphocytes # (A) 2.1 k/uL (1.0-4.8); Lymphocytes % (A) 32 %; MCH 28.9 pg (25.0-35.0); MCHC 31.9 g/dL (31.0-37.0); MCV 90.5 fL (80.0-100.0); Mean Platelet Volume 7.9; Monocytes # (A) 0.4 k/uL (0-1.0); Monocytes % (A) 6 %; Neutrophils # (A) 3.7 k/uL (1.3-7.7); Neutrophils % (A) 57 %; Platelet Count 278 k/uL (150-450); RBC 4.38 m/uL (3.80-5.40); RDW 13.2 % (11.5-15.5); WBC 6.5 k/uL (3.8-10.6)
[2019-12-28] MEDS: diphenhydrAMINE 25 MG CAP PO SCH ×3 (09:10→22:04)
[2019-12-28] MEDS: BACLOFEN 10 MG TAB PO SCH ×2 (09:10→20:20)
[2019-12-28] MEDS: NAPROXEN 250 MG TAB PO SCH ×2 (09:10→20:20)
[2019-12-28] MEDS: HEPARIN SODIUM,PORCINE 5,000 UNIT/ML 1 ML VIAL SQ SCH ×2 (09:11→20:22)
[2019-12-28] MEDS: LACTOBACILLUS ACIDOPH & BULGAR 1 EACH PACKET PO SCH (09:11)
[2019-12-28] MEDS: clonazePAM 1 MG TAB PO SCH ×3 (09:11→22:04)
[2019-12-28 09:53] LABS: African American GFR (CKD) 160.9 (60.0-200.0); Non-African American GFR(CKD) 138.8 (60.0-200.0)
--- NOTE | 2019-12-28 16:43 | PN ---
PROGRESS NOTE DATE OF SERVICE: 12/28/2019 REASON FOR FOLLOWUP: Left gluteal pressure ulcer. INTERVAL HISTORY: Patient is currently afebrile. She is breathing comfortably. No chest pain or cough. No nausea, no vomiting. No abdominal pain. No pain to the gluteal wound area. PHYSICAL EXAMINATION: Blood pressure 115/73 with a pulse of 102. Temperature 98.3. She is 97% on room air. General description: The patient is a middle-aged female lying in bed in no distress. Respiratory system: Unlabored breathing, clear to auscultation anteriorly. Heart S1, S2. Regular rate and rhythm. Abdomen soft, no tenderness. LABS: Hemoglobin is 12.8, white count 6.5. Creatinine 0.4. Wound culture with Proteus mirabilis. DIAGNOSTIC IMPRESSION AND PLAN: Patient with left gluteal stage III pressure ulcer with secondary cellulitis, culture positive for Proteus. She received a dose of Rocephin. Subsequently, finish therapy with oral Ceftin. Local care with Santyl until the patient is evaluated in the wound care center for local wound care. Continue supportive care. MMODL / IJN: [id number] /
--- NOTE | 2019-12-28 22:27 | P.PN ---
Progress Note - Text Progress Note Date: 12/28/19 Chief Complaint: Decubitus buttock wound History of presenting complaint: This is a 29-year-old patient who follows with Dr. shea from [place]. Patient is pretty much wheelchair dependent history of cerebral palsy. Patient's parents were present in the ER. Patient's had a pressure ulcer the left side of the buttock/hip area for last 6 weeks and progressively getting worse. Has been a home nurse does believe the dressing changes. Does not report nausea of fever. Patient is a bit dysarthric but able to answer simple questions. She does state that the wheelchair padding is a bit uncomfortable. Patient has spasticity in the lower extremities. Admitted with left buttock decub ulcer wound. On IV Unasyn. IV fluids. Patient buttock wound debridement by Dr. Cho. Today-comfortable. Starting a diet. No new issues. Review of systems: Was done for constitutional, cardiovascular, GI, pulmonary. relevant finding as above Active Medications Baclofen (Baclofen 10 Mg Tab) 100 mg PO BID [facility] Last Admin: 12/28/19 20:20 Dose: 100 mg Documented by: Clonazepam (Clonazepam 1 Mg Tab) 2 mg PO TID [facility] Last Admin: 12/28/19 22:04 Dose: 2 mg Documented by: Diphenhydramine HCl (Diphenhydramine 25 Mg Cap) 25 mg PO TID [facility] Last Admin: 12/28/19 22:04 Dose: 25 mg Documented by: Heparin Sodium (Porcine) (Heparin Sodium,Porcine 5,000 Unit/Ml 1 Ml Vial) 5,000 unit SQ Q12HR [facility] Last Admin: 12/28/19 20:22 Dose: 5,000 unit Documented by: Sodium Chloride (Saline 0.9%) 1,000 mls @ 75 mls/hr IV .[id number] [facility] Last Admin: 12/28/19 14:44 Dose: Not Given Documented by: Ceftriaxone Sodium 2 gm/ (Sodium Chloride) 50 mls @ 100 mls/hr IVPB Q24HR [facility] Last Admin: 12/28/19 12:02 Dose: 100 mls/hr Documented by: Lactobacillus Acidoph/Bulgaricus (Lactobacillus Acidoph & Bulgar 1 Each Packet) 1 each PO DAILY [facility] Last Admin: 12/28/19 09:11 Dose: 1 each Documented by: Lorazepam (Lorazepam 2 Mg/Ml Inj) 0.5 mg IV Q6HR PRN PRN Reason: Anxiety Naloxone HCl (Naloxone 0.4 Mg/Ml 1 Ml Vial) 0.2 mg IV Q2M PRN PRN Reason: Opioid Reversal Naproxen (Naproxen 250 Mg Tab) 250 mg PO BID [facility] Last Admin: 12/28/19 20:20 Dose: 250 mg Documented by: Ondansetron HCl (Ondansetron 4 Mg/2 Ml Vial) 4 mg IVP Q8HR PRN PRN Reason: Nausea And Vomiting Physical examination: VITAL SIGNS: 98.3, 1 or 2, 16, 116/73, 97% on room air GENERAL: Laying in bed, comfortable, eating EYES: Pupils equal. Conjunctiva charito, strabismusl. NECK: JVD unable assess; masses not palpable. HEART: First and second heart sounds are normal; no edema. LUNGS: Respiratory rate normal; clear to auscultation. ABDOMEN: Soft, nontender, liver spleen not palpable, no masses palpable. MUSCULAR skeletal-there is a deep Route decubital ulcer posterior part of the left hip adjoining gluteal area about 2 inches in diameter. PSYCH: Able to answer simple questions NEUROLOGICAL: [Strabismus, dysarthric, contracted upper and lower extremity. Muscle wasting. INVESTIGATIONS, reviewed in the clinical context: White count 6.5 hemoglobin 12.6 creatinine 0.4 Previous testing White count 7.7 hemoglobin 13.8 platelets 377, potassium 3.9, bun 23, creatinine 0.42 Lactic acid 2.3 Wound culture-positive for Proteus mirabilis Assessment: -Patient has a progressive left hip posterior gluteal decubitus ulcer that has failed outpatient treatment and progressively getting worse.-Status post debridement. Culture positive for Proteus mirabilis. -Lactic acidosis from above -Chronic cerebral palsy -Limb contractures from above -Chronic muscle spasms -Chronic constipation Plan: IV Unasyn. Will be discharged on Ceftin. We'll follow the wound care center for Dr. Shepherd. Discharge is being held because of patient needs a mattress and a cushion for a chair. gardening manager is involved in the same.
[2019-12-29] MEDS: SODIUM CHLORIDE 0.9% 1,000 ML IV SCH (03:28)
[2019-12-29] MEDS: LACTOBACILLUS ACIDOPH & BULGAR 1 EACH PACKET PO SCH (09:11)
[2019-12-29] MEDS: BACLOFEN 10 MG TAB PO SCH ×2 (09:11→20:55)
[2019-12-29] MEDS: diphenhydrAMINE 25 MG CAP PO SCH ×3 (09:14→20:57)
[2019-12-29] MEDS: clonazePAM 1 MG TAB PO SCH ×3 (09:14→20:56)
[2019-12-29] MEDS: HEPARIN SODIUM,PORCINE 5,000 UNIT/ML 1 ML VIAL SQ SCH ×2 (09:14→20:56)
[2019-12-29] MEDS: NAPROXEN 250 MG TAB PO SCH ×2 (09:15→20:56)
[2019-12-29 10:05] LABS: African American GFR (CKD) 160.9 (60.0-200.0); Non-African American GFR(CKD) 138.8 (60.0-200.0)
--- NOTE | 2019-12-29 16:49 | PN ---
PROGRESS NOTE DATE OF SERVICE: 12/29/2019. REASON FOR FOLLOWUP: Right gluteal infected pressure ulcer. INTERVAL HISTORY: The patient is currently afebrile. She is breathing better, breathing comfortably. Denies any chest pain or cough. No abdominal pain. No pain to the left gluteal wound area. PHYSICAL EXAMINATION: Blood pressure 122/82 with a pulse of 104. Temperature 98.4. She is 99% on room air. General description is a middle-aged female lying in bed in no distress. Respiratory system: Unlabored breathing, clear to auscultation anteriorly. Heart S1, S2. Regular rate and rhythm. ABDOMEN: Soft. No tenderness. EXTREMITIES: No edema of the feet. LABS: White count 6.5. DIAGNOSTIC IMPRESSION AND PLAN: Patient with left gluteal infected pressure ulcer stage III, status post debridement. Patient is covered with Rocephin. Finish therapy with oral Ceftin. Local wound care with Santyl and may benefit from wound VAC in outpatient setting. Continue supportive care. MMODL / IJN: [id number] /
--- NOTE | 2019-12-29 20:31 | P.PN ---
Progress Note - Text Progress Note Date: 12/29/19 Chief Complaint: Decubitus buttock wound History of presenting complaint: This is a 29-year-old patient who follows with Dr. shea from [place]. Patient is pretty much wheelchair dependent history of cerebral palsy. Patient's parents were present in the ER. Patient's had a pressure ulcer the left side of the buttock/hip area for last 6 weeks and progressively getting worse. Has been a home nurse does believe the dressing changes. Does not report nausea of fever. Patient is a bit dysarthric but able to answer simple questions. She does state that the wheelchair padding is a bit uncomfortable. Patient has spasticity in the lower extremities. Admitted with left buttock decub ulcer wound. On IV Unasyn. IV fluids. Patient buttock wound debridement by Dr. Cho. Today-comfortable. Tolerating a diet. Awaiting mattress in a chair cushion before patient can return home. manager business planning involved.. Review of systems: Was done for constitutional, cardiovascular, GI, pulmonary. relevant finding as above Active Medications Baclofen (Baclofen 10 Mg Tab) 100 mg PO BID [facility] Last Admin: 12/29/19 09:11 Dose: 100 mg Documented by: Clonazepam (Clonazepam 1 Mg Tab) 2 mg PO TID [facility] Last Admin: 12/29/19 17:11 Dose: 2 mg Documented by: Diphenhydramine HCl (Diphenhydramine 25 Mg Cap) 25 mg PO TID [facility] Last Admin: 12/29/19 17:11 Dose: 25 mg Documented by: Heparin Sodium (Porcine) (Heparin Sodium,Porcine 5,000 Unit/Ml 1 Ml Vial) 5,000 unit SQ Q12HR [facility] Last Admin: 12/29/19 09:14 Dose: 5,000 unit Documented by: Ceftriaxone Sodium 2 gm/ (Sodium Chloride) 50 mls @ 100 mls/hr IVPB Q24HR [facility] Last Admin: 12/29/19 09:10 Dose: 100 mls/hr Documented by: Lactobacillus Acidoph/Bulgaricus (Lactobacillus Acidoph & Bulgar 1 Each Packet) 1 each PO DAILY [facility] Last Admin: 12/29/19 09:11 Dose: 1 each Documented by: Lorazepam (Lorazepam 2 Mg/Ml Inj) 0.5 mg IV Q6HR PRN PRN Reason: Anxiety Naloxone HCl (Naloxone 0.4 Mg/Ml 1 Ml Vial) 0.2 mg IV Q2M PRN PRN Reason: Opioid Reversal Naproxen (Naproxen 250 Mg Tab) 250 mg PO BID [facility] Last Admin: 12/29/19 09:15 Dose: 250 mg Documented by: Ondansetron HCl (Ondansetron 4 Mg/2 Ml Vial) 4 mg IVP Q8HR PRN PRN Reason: Nausea And Vomiting Physical examination: VITAL SIGNS: 98.4, 104, 16, 122/82, 99% room air GENERAL: Laying in bed, comfortable, EYES: Pupils equal. Conjunctiva charito, strabismusl. NECK: JVD unable assess; masses not palpable. HEART: First and second heart sounds are normal; no edema. LUNGS: Respiratory rate normal; clear to auscultation. ABDOMEN: Soft, nontender, liver spleen not palpable, no masses palpable. MUSCULAR skeletal-there is a deep Route decubital ulcer posterior part of the left hip adjoining gluteal area about 2 inches in diameter. PSYCH: Able to answer simple questions NEUROLOGICAL: Strabismus, dysarthric, contracted upper and lower extremity. Muscle wasting. INVESTIGATIONS, reviewed in the clinical context: White count 6.5 hemoglobin 12.6 creatinine 0.4 Previous testing White count 7.7 hemoglobin 13.8 platelets 377, potassium 3.9, bun 23, creatinine 0.42 Lactic acid 2.3 Wound culture-positive for Proteus mirabilis Assessment: -Patient has a progressive left hip posterior gluteal decubitus ulcer that has failed outpatient treatment and progressively getting worse.-Status post debridement. Culture positive for Proteus mirabilis. -Lactic acidosis from above -Chronic cerebral palsy -Limb contractures from above -Chronic muscle spasms -Chronic constipation Plan: On IV ceftriaxone.. Discharge is being held because of patient needs a bed mattress and a cushion for a chair. manager business planning working on the same..
[2019-12-30] MEDS: clonazePAM 1 MG TAB PO SCH ×3 (08:03→21:23)
[2019-12-30] MEDS: HEPARIN SODIUM,PORCINE 5,000 UNIT/ML 1 ML VIAL SQ SCH ×2 (08:04→21:23)
[2019-12-30] MEDS: LACTOBACILLUS ACIDOPH & BULGAR 1 EACH PACKET PO SCH (08:04)
[2019-12-30] MEDS: diphenhydrAMINE 25 MG CAP PO SCH ×3 (08:04→21:23)
[2019-12-30] MEDS: NAPROXEN 250 MG TAB PO SCH ×2 (08:33→21:22)
[2019-12-30] MEDS: BACLOFEN 10 MG TAB PO SCH ×2 (08:33→21:23)
--- NOTE | 2019-12-30 14:55 | PN ---
PROGRESS NOTE DATE OF SERVICE: 12/30/2019 REASON FOR FOLLOWUP: Left gluteal infected pressure ulcer. INTERVAL HISTORY: Patient is currently afebrile. The patient is breathing comfortably. Denies having any chest pain or any cough. No abdominal pain or any worsening pain to the left gluteal area. PHYSICAL EXAMINATION: Blood pressure 122/87 with a pulse of 102, temperature 98.3. She is 98% on room air. General description is a middle-aged female, lying in bed in no distress. RESPIRATORY SYSTEM: Unlabored breathing, clear to auscultation anteriorly. HEART: S1, S2. Regular rate and rhythm. ABDOMEN: Soft, no tenderness. LABS: No new labs have been obtained today. DIAGNOSTIC IMPRESSION AND PLAN: Patient with left gluteal infected pressure ulcer, status post debridement. Culture positive for Proteus. Patient on Rocephin, transition to Ceftin. Local care with wound VAC and follow up in the [facility] next week. Questions and concerns were answered. MMODL / IJN: [id number] /
--- NOTE | 2019-12-30 16:52 | P.PN ---
Progress Note - Text Progress Note Date: 12/30/19 Chief Complaint: Decubitus buttock wound History of presenting complaint: This is a 29-year-old patient who follows with Dr. shea from [place]. Patient is pretty much wheelchair dependent history of cerebral palsy. Patient's parents were present in the ER. Patient's had a pressure ulcer the left side of the buttock/hip area for last 6 weeks and progressively getting worse. Has been a home nurse does believe the dressing changes. Does not report nausea of fever. Patient is a bit dysarthric but able to answer simple questions. She does state that the wheelchair padding is a bit uncomfortable. Patient has spasticity in the lower extremities. Admitted with left buttock decub ulcer wound. On IV ceftriaxone. IV fluids. Patient buttock wound debridement by Dr. Cho. Today-comfortable. Tolerating a diet. Review of systems: Was done for constitutional, cardiovascular, GI, pulmonary. relevant finding as above Active Medications Baclofen (Baclofen 10 Mg Tab) 100 mg PO BID [facility] Last Admin: 12/30/19 08:33 Dose: 100 mg Documented by: Clonazepam (Clonazepam 1 Mg Tab) 2 mg PO TID [facility] Last Admin: 12/30/19 16:26 Dose: 2 mg Documented by: Diphenhydramine HCl (Diphenhydramine 25 Mg Cap) 25 mg PO TID [facility] Last Admin: 12/30/19 16:26 Dose: 25 mg Documented by: Heparin Sodium (Porcine) (Heparin Sodium,Porcine 5,000 Unit/Ml 1 Ml Vial) 5,000 unit SQ Q12HR [facility] Last Admin: 12/30/19 08:04 Dose: 5,000 unit Documented by: Ceftriaxone Sodium 2 gm/ (Sodium Chloride) 50 mls @ 100 mls/hr IVPB Q24HR [facility] Last Admin: 12/30/19 08:01 Dose: 100 mls/hr Documented by: Lactobacillus Acidoph/Bulgaricus (Lactobacillus Acidoph & Bulgar 1 Each Packet) 1 each PO DAILY [facility] Last Admin: 12/30/19 08:04 Dose: 1 each Documented by: Lorazepam (Lorazepam 2 Mg/Ml Inj) 0.5 mg IV Q6HR PRN PRN Reason: Anxiety Naloxone HCl (Naloxone 0.4 Mg/Ml 1 Ml Vial) 0.2 mg IV Q2M PRN PRN Reason: Opioid Reversal Naproxen (Naproxen 250 Mg Tab) 250 mg PO BID [facility] Last Admin: 12/30/19 08:33 Dose: 250 mg Documented by: Ondansetron HCl (Ondansetron 4 Mg/2 Ml Vial) 4 mg IVP Q8HR PRN PRN Reason: Nausea And Vomiting Physical examination: VITAL SIGNS: 98.3, 96, 16, 120/87, 98% room air GENERAL: Laying in bed, comfortable, cheerful EYES: Pupils equal. Conjunctiva normal, strabismus NECK: JVD unable assess; masses not palpable. HEART: First and second heart sounds are normal; no edema. LUNGS: Respiratory rate normal; clear to auscultation. ABDOMEN: Soft, nontender, liver spleen not palpable, no masses palpable. MUSCULAR skeletal-there is a deep Route decubital ulcer posterior part of the left hip adjoining gluteal area about 2 inches in diameter. PSYCH: Able to answer simple questions NEUROLOGICAL: Strabismus, dysarthric, contracted upper and lower extremity. Muscle wasting. INVESTIGATIONS, reviewed in the clinical context: White count 6.5 hemoglobin 12.6 creatinine 0.4 Previous testing White count 7.7 hemoglobin 13.8 platelets 377, potassium 3.9, bun 23, creatinine 0.42 Lactic acid 2.3 Wound culture-positive for Proteus mirabilis Assessment: -Patient has a progressive left hip posterior gluteal decubitus ulcer that has failed outpatient treatment and progressively getting worse.-Status post de bridement. Culture positive for Proteus mirabilis. -Lactic acidosis from above -Chronic cerebral palsy -Limb contractures from above -Chronic muscle spasms -Chronic constipation Plan: Patient switched over to Ceftin oral antibiotic. Per watch caser, awaiting authorization for a mattress. Other medications to continue.
[2019-12-31] MEDS: CEFDINIR 300 MG CAP PO SCH ×4 (07:53→21:33)
[2019-12-31] MEDS: clonazePAM 1 MG TAB PO SCH ×3 (07:53→21:32)
[2019-12-31] MEDS: LACTOBACILLUS ACIDOPH & BULGAR 1 EACH PACKET PO SCH (07:53)
[2019-12-31] MEDS: BACLOFEN 10 MG TAB PO SCH ×2 (07:53→21:33)
[2019-12-31] MEDS: diphenhydrAMINE 25 MG CAP PO SCH ×3 (07:53→21:32)
[2019-12-31] MEDS: HEPARIN SODIUM,PORCINE 5,000 UNIT/ML 1 ML VIAL SQ SCH ×2 (07:54→21:33)
[2019-12-31] MEDS: NAPROXEN 250 MG TAB PO SCH ×2 (07:54→21:33)
--- NOTE | 2019-12-31 13:09 | PN ---
PROGRESS NOTE DATE OF SERVICE: 12/31/2019 REASON FOR FOLLOWUP: Left gluteal infected pressure ulcer. INTERVAL HISTORY: The patient is currently afebrile. The patient is feeling better. Breathing comfortably. The patient denies having any chest pain. No shortness of breath or cough. There is no vomiting or any diarrhea. PHYSICAL EXAMINATION: Her blood pressure is 125/75 with a pulse of 106, temperature 98.1. She is 95% on room air. General description is a middle-aged female, lying in bed in no distress. RESPIRATORY SYSTEM: Unlabored breathing, clear to auscultation anteriorly. HEART: S1, S2. Regular rate and rhythm. ABDOMEN: Soft, no tenderness. Left gluteal wound is currently covered with a wound VAC. LABS: Hemoglobin is 12.3, white count 6.5, creatinine 0.4. Wound culture with Proteus mirabilis. DIAGNOSTIC IMPRESSION AND PLAN: Patient with left gluteal stage 3 infected pressure ulcer, status post debridement, culture with Proteus mirabilis. Finish therapy with oral Ceftin. Local wound care with wound VAC. Follow up in the Wound Care Center next week. Continue supportive care. MMODL / IJN: [id number] /
[2019-12-31 20:36] VITALS: RESP 16
--- NOTE | 2019-12-31 22:16 | P.PN ---
Progress Note - Text Progress Note Date: 12/31/19 Chief Complaint: Decubitus buttock wound History of presenting complaint: This is a 29-year-old patient who follows with Dr. shea from [place]. Patient is pretty much wheelchair dependent history of cerebral palsy. Patient's parents were present in the ER. Patient's had a pressure ulcer the left side of the buttock/hip area for last 6 weeks and progressively getting worse. Has been a home nurse does believe the dressing changes. Does not report nausea of fever. Patient is a bit dysarthric but able to answer simple questions. She does state that the wheelchair padding is a bit uncomfortable. Patient has spasticity in the lower extremities. Admitted with left buttock decub ulcer wound. On IV ceftriaxone. IV fluids. Patient buttock wound debridement by Dr. Cho. Today-comfortable. No new issues. Has been switched to oral antibiotic. Review of systems: Was done for constitutional, cardiovascular, GI, pulmonary. relevant finding as above Active Medications Baclofen (Baclofen 10 Mg Tab) 100 mg PO BID [facility] Last Admin: 12/31/19 21:33 Dose: 100 mg Documented by: Cefdinir (Cefdinir 300 Mg Cap) 300 mg PO BID [facility] Last Admin: 12/31/19 21:33 Dose: 300 mg Documented by: Clonazepam (Clonazepam 1 Mg Tab) 2 mg PO TID [facility] Last Admin: 12/31/19 21:32 Dose: 2 mg Documented by: Diphenhydramine HCl (Diphenhydramine 25 Mg Cap) 25 mg PO TID [facility] Last Admin: 12/31/19 21:32 Dose: 25 mg Documented by: Heparin Sodium (Porcine) (Heparin Sodium,Porcine 5,000 Unit/Ml 1 Ml Vial) 5,000 unit SQ Q12HR [facility] Last Admin: 12/31/19 21:33 Dose: 5,000 unit Documented by: Lactobacillus Acidoph/Bulgaricus (Lactobacillus Acidoph & Bulgar 1 Each Packet) 1 each PO DAILY [facility] Last Admin: 12/31/19 07:53 Dose: 1 each Documented by: Lorazepam (Lorazepam 2 Mg/Ml Inj) 0.5 mg IV Q6HR PRN PRN Reason: Anxiety Naloxone HCl (Naloxone 0.4 Mg/Ml 1 Ml Vial) 0.2 mg IV Q2M PRN PRN Reason: Opioid Reversal Naproxen (Naproxen 250 Mg Tab) 250 mg PO BID [facility] Last Admin: 12/31/19 21:33 Dose: 250 mg Documented by: Ondansetron HCl (Ondansetron 4 Mg/2 Ml Vial) 4 mg IVP Q8HR PRN PRN Reason: Nausea And Vomiting Physical examination: VITAL SIGNS: 99.1, 106, 17, 125 a 75, 95% on room air GENERAL: Laying in bed, comfortable, cheerful EYES: Pupils equal. Conjunctiva normal, strabismus NECK: JVD unable assess; masses not palpable. HEART: First and second heart sounds are normal; no edema. LUNGS: Respiratory rate normal; clear to auscultation. ABDOMEN: Soft, nontender, liver spleen not palpable, no masses palpable. MUSCULAR skeletal-there is a deep Route decubital ulcer posterior part of the left hip adjoining gluteal area about 2 inches in diameter. PSYCH: Able to answer simple questions NEUROLOGICAL: Strabismus, dysarthric, contracted upper and lower extremity. Muscle wasting. INVESTIGATIONS, reviewed in the clinical context: White count 6.5 hemoglobin 12.6 creatinine 0.4 Previous testing White count 7.7 hemoglobin 13.8 platelets 377, potassium 3.9, bun 23, creatinine 0.42 Lactic acid 2.3 Wound culture-positive for Proteus mirabilis Assessment: -Patient has a progressive left hip posterior gluteal decubitus ulcer that has failed outpatient treatment and progressively getting worse.-Status post debridement. Culture positive for Proteus mirabilis. -Lactic acidosis from above -Chronic cerebral palsy -Limb contractures from above -Chronic muscle spasms -Chronic constipation Plan: Continue current medication she plan. Pending mattress approval.
[2020-01-01 04:53] VITALS: TEMP 98.2
[2020-01-01] MEDS: BACLOFEN 10 MG TAB PO SCH (09:46)
[2020-01-01] MEDS: diphenhydrAMINE 25 MG CAP PO SCH ×2 (09:47→16:15)
[2020-01-01] MEDS: CEFDINIR 300 MG CAP PO SCH (09:47)
[2020-01-01] MEDS: LACTOBACILLUS ACIDOPH & BULGAR 1 EACH PACKET PO SCH (09:47)
[2020-01-01] MEDS: HEPARIN SODIUM,PORCINE 5,000 UNIT/ML 1 ML VIAL SQ SCH (09:47)
[2020-01-01] MEDS: clonazePAM 1 MG TAB PO SCH ×2 (09:48→16:15)
[2020-01-01] MEDS: NAPROXEN 250 MG TAB PO SCH (09:49)
[2020-01-01 11:46] VITALS: BP 135/83; PULSE 122
[2020-01-01] MEDS ORDERED: DOCUSATE 100 MG CAP PO STA (12:27)
[2020-01-01] MEDS ORDERED: COLLAGENASE 250 UNIT/GM OINTMENT 30 GM TUBE TOPICAL SCH (13:45)
--- NOTE | 2020-01-01 14:01 | PN ---
PROGRESS NOTE DATE OF SERVICE: 01/01/2020 REASON FOR FOLLOWUP: Left gluteal infected pressure ulcer stage 3. INTERVAL HISTORY: The patient is currently afebrile. The patient is breathing comfortably. No chest pain. No abdominal pain or worsening pain to the left gluteal area. PHYSICAL EXAMINATION: Blood pressure 135/83, pulse 122, temperature 98.2. She is 97% on room air. General description is a middle-aged female, lying in bed in no distress. RESPIRATORY SYSTEM: Unlabored breathing, clear to auscultation anteriorly. HEART: S1, S2. Regular rate and rhythm. ABDOMEN: Soft, no tenderness. The left gluteal wound has decreased in depth. Minimal soft tissue, no surrounding redness or any drainage. LABS: No new labs have been obtained today. DIAGNOSTIC IMPRESSION AND PLAN: Patient with left gluteal infected pressure ulcer, status post debridement, seemed to have a problem with home care arrangement for the bed before the insurance will improve Wound VAC that has delayed the patient's discharge for almost 4 days per discussion with the admitting physician. We will switch local wound care to Santyl followed by moist dressing, keep the area dry and off the pressure and followup with the local wound care center next week. Continue with oral Ceftin for about a week. Patient is to be evaluated in the outpatient setting. MMODL / IJN: [id number] /
--- NOTE | 2020-01-01 22:02 | P.DS ---
Providers Date of admission: 12/27/19 10:23 Expected date of discharge: 01/01/20 Attending physician: Kendall Vargas Consults: 12/25/19 19:43 Consult Physician Stat Consulting Provider: Lori Lazaro Consult Reason/Comments: Pressure ulcer Do you want consulting provider notified?: Yes 12/26/19 18:00 Consult Physician Routine Consulting Provider: Hamzah Brown Consult Reason/Comments: left gluteal pressure ulcer for surgical debridment Do you want consulting provider notified?: Yes Primary care physician: Matt Gallo [facility] Course: Chief Complaint: Decubitus buttock wound History of presenting complaint: This is a 29-year-old patient who follows with Dr. gallo from [place]. Patient is pretty much wheelchair dependent history of cerebral palsy. Patient's parents were present in the ER. Patient's had a pressure ulcer the left side of the buttock/hip area for last 6 weeks and progressively getting worse. Has been a home nurse does believe the dressing changes. Does not report nausea of fever. Patient is a bit dysarthric but able to answer simple questions. She does state that the wheelchair padding is a bit uncomfortable. Patient has spasticity in the lower extremities. Admitted with left buttock decub ulcer wound. On IV ceftriaxone. IV fluids. Patient buttock wound debridement by Dr. Cho. Today-comfortable. No new issues. Discussed with Dr. Shepherd from [place]. Wound is improved. Patient can do without a wound VAC. Conveyed to correctional counselor/case manager. Mattress is being arranged to be delivered. Discussion and discharge planning more than 35 minutes Consultation: Dr. Cho from general surgery Dr. Shepherd from [place] Physical examination: VITAL SIGNS: 98.2, 89, 16, 128/85, 97% on room air GENERAL: Laying in bed, comfortable, comfortable EYES: Pupils equal. Conjunctiva normal, strabismus NECK: JVD unable assess; masses not palpable. HEART: First and second heart sounds are normal; no edema. LUNGS: Respiratory rate normal; clear to auscultation. ABDOMEN: Soft, nontender, liver spleen not palpable, no masses palpable. MUSCULAR skeletal-there is a deep Route decubital ulcer posterior part of the left hip adjoining gluteal area about 2 inches in diameter. PSYCH: Able to answer simple questions NEUROLOGICAL: Strabismus, dysarthric, contracted upper and lower extremity. Muscle wasting. INVESTIGATIONS, reviewed in the clinical context: White count 6.5 hemoglobin 12.6 creatinine 0.4 Previous testing White count 7.7 hemoglobin 13.8 platelets 377, potassium 3.9, bun 23, creatinine 0.42 Lactic acid 2.3 Wound culture-positive for Proteus mirabilis Assessment: -Patient has a progressive left hip posterior gluteal decubitus ulcer that has failed outpatient treatment and progressively getting worse.-Status post debridement. Culture positive for Proteus mirabilis.-Getting better -Lactic acidosis from above -Chronic cerebral palsy -Limb contractures from above -Chronic muscle spasms -Chronic constipation Disposition: Home Patient Condition at Discharge: Stable Plan - Discharge Summary New Discharge Prescriptions: New Cefuroxime Axetil [Ceftin] 500 mg PO BID #14 tab Continue Baclofen [Lioresal] 100 mg PO BID clonazePAM [KlonoPIN] 2 mg PO TID diphenhydrAMINE [Benadryl] 25 mg PO TID Naproxen Sodium [Aleve] 220 mg PO BID L.acidoph,Paracasei, B.lactis [Probiotic] 1 cap PO DAILY Discontinued Collagenase [Santyl] 1 applic TOPICAL DAILY Discharge Medication List Baclofen [Lioresal] 100 mg PO BID 10/08/19 [History] clonazePAM [KlonoPIN] 2 mg PO TID 10/08/19 [History] diphenhydrAMINE [Benadryl] 25 mg PO TID 10/08/19 [History] L.acidoph,Paracasei, B.lactis [Probiotic] 1 cap PO DAILY 12/25/19 [History] Naproxen Sodium [Aleve] 220 mg PO BID 12/25/19 [History] Cefuroxime Axetil [Ceftin] 500 mg PO BID #14 tab 12/28/19 [Rx] Follow up Appointment(s)/Ref[facility] - 1 Week Matt Gallo MD [Primary Care Provider] - 01/02/20 10:15 am Lori Lazaro MD [STAFF PHYSICIAN] - 1 Week (Follow-up with Dr. Lazaro in the wound center next week. Wound center should contact you with appt. time. Wound center can be reached at [phone]. ) Patient Instructions/Handouts: Cefuroxime (By mouth) Activity/Diet/Wound Care/Special Instructions: [facility] -[phone] Daily wound care with Santyl, followed with moist dressing and secured with ABD pad. cbc/bmp - 5 days [facility] Durable Medical Equipment - Continuing to wait for insurance authorization on mattress riser. You may phone them direct with questions. Wound Care Center to call you with appt. time and [id number] appt. with Dr. Lazaro at this time. no wound vac- discussed with dr lazaro Discharge Disposition: HOME WITH HOME HEALTH SERVICES
== END 2020-01-01 17:18 | disposition home health service (06) | DRG 580 ==
LOC: EEVIPCON 16:15 → EC 16:15 → 5NMEDONC 19:36 → 6NMEDSUR 19:59 → OBSVTOIN 12-27 10:23
PROVIDERS: ADMIT Hospitalist; ATTEND Hospitalist
PROC: 0KBP0ZZ Excision of Left Hip Muscle, Open Approach (ICD-10-PCS; principal; 2019-12-26)
DX: L89.323 Pressure ulcer of left buttock, stage 3 (principal); E87.2 Acidosis; L03.317 Cellulitis of buttock; G80.1 Spastic diplegic cerebral palsy; M24.452 Recurrent dislocation, left hip; K59.09 Other constipation; R32 Unspecified urinary incontinence; B96.4 Proteus (mirabilis) (morganii) as the cause of diseases classified elsewhere; Z71.3 Dietary counseling and surveillance; Z79.899 Other long term (current) drug therapy; Z99.3 Dependence on wheelchair; Z79.1 Long term (current) use of non-steroidal anti-inflammatories (NSAID); Z77.22 Contact with and (suspected) exposure to environmental tobacco smoke (acute) (chronic); Z91.040 Latex allergy status; Z82.3 Family history of stroke; Z82.49 Family history of ischemic heart disease and other diseases of the circulatory system; Z82.0 Family history of epilepsy and other diseases of the nervous system; Z83.438 Family history of other disorder of lipoprotein metabolism and other lipidemia
CPT/HCPCS: 36415; 73502; 80053; 82565; 83605; 85025; 87040; 87070; 87077; 87186; 87205; 96361; 96365; 96367; 96375; 99284

== ENCOUNTER → 2021-11-05 | Outpatient (CLI) | payer MEDICARE, BC ==
--- NOTE | 2021-11-05 14:17 | USB ---
Reason for Exam: Clinical finding. Technique: Method: Targeted. Findings: The upper outer quadrant of the right breast, the axilla of the right breast and the retroareolar of the right breast were scanned. No solid or cystic masses are identified. No suspicious ultrasound abnormality at the level of the patient's known scar. No underlying abscess is evident. No solid cutaneous sebaceous cyst or other abnormality is evident. Treatment can be performed. If there is incomplete resolution, reevaluation could be performed. Diagnostic mammography performed for nonresolution. Repeat ultrasound can be performed for changing clinical findings. Overall Assessment: Negative, BI-RAD 1 Management: Screening Mammogram of both breasts. Baseline screening mammogram can be performed at age 33. Diagnostic mammography performed earlier for changing clinical findings or nonresolution of current findings. Repeat ultrasound could be performed for change in clinical findings. Clinical management is recommended. A clinical breast exam by your physician is recommended on an annual basis and results should be correlated with mammographic findings. Electronically signed and approved by: Pelon Hugo D.O. [employer]iolog[employer]
== END | disposition home or self-care (01) ==
LOC: EEVIPCON 13:00 → RADMAMWWP 13:01
PROVIDERS: ATTEND Family Medicine
DX: R92.8 Other abnormal and inconclusive findings on diagnostic imaging of breast (principal)